=== PATIENT | female | born 1965 | race Caucasian/White ===

== ENCOUNTER 2021-11-30 08:59 | Day surgery (SDC) | payer OTHER ==
[~2021-11-30] VITALS: Ht 160 cm; Wt 76.3 kg
[~2021-11-30 08:59] MED LIST: SODIUM CHLORIDE 0.9% 1,000 ML IV ONE
[2021-11-30] MEDS ORDERED: SODIUM CHLORIDE 0.9% 1,000 ML ONE (09:46)
[2021-11-30] MEDS ORDERED: SODIUM CHLORIDE 0.9% 1,000 ML IV ONE (10:00)
[2021-11-30 10:21] LABS: GLUCOMETER DEV NAME(LOC) SDS.; GLUCOSE,POINT OF CARE 98 MG/DL (70-110)
[2021-11-30] MEDS ORDERED: CARV25 PO (10:33)
[2021-11-30] MEDS ORDERED: AMLO-257 PO (10:33)
[2021-11-30] MEDS ORDERED: ALBU8.5H8 IH (10:36)
[2021-11-30] MEDS ORDERED: ASPI-1450 PO (10:37)
[2021-11-30] MEDS ORDERED: ASPIRIN 81 MG CHEWABLE TABLET PO ONE (12:00)
[2021-11-30] MEDS ORDERED: DiphenhydrAMINE HCL 50 MG CAPSULE PO ONE (12:00)
[2021-11-30] MEDS ORDERED: DIAZEPAM 5 MG TABLET PO ONE (12:00)
[2021-11-30] MEDS ORDERED: DIAZEPAM 5 MG TABLET ONE (13:27)
[2021-11-30] MEDS ORDERED: DiphenhydrAMINE HCL 50 MG CAPSULE ONE (13:27)
[2021-11-30] MEDS ORDERED: DICL75TA5 PO (13:30)
[2021-11-30] MEDS ORDERED: CYCL5TAB PO (13:30)
[2021-11-30] MEDS ORDERED: DICL100G31 TP (13:30)
[2021-11-30] MEDS ORDERED: IOHEXOL 300 MG/ML 150 ML VIAL IVP ONE (14:00)
[2021-11-30] MEDS ORDERED: LIDOCAINE/PF 1% 30 ML VIAL ONE (14:58)
[2021-11-30] MEDS ORDERED: IOHEXOL 300 MG/ML 50 ML VIAL ONE (14:58)
[2021-11-30] MEDS ORDERED: SODIUM BICARBONATE 50 MEQ/50 ML VIAL ONE (14:58)
[2021-11-30] MEDS ORDERED: IOHEXOL 300 MG/ML 100 ML VIAL ONE (14:59)
[2021-11-30] MEDS ORDERED: HEPARIN SODIUM 1000 UNITS/NS 1,000 ML ONE (14:59)
[2021-11-30] MEDS ORDERED: IOHEXOL 300 MG/ML 150 ML VIAL ONE (14:59)
[2021-11-30] MEDS ORDERED: MIDAZOLAM HCL 2 MG/2 ML VIAL ONE (15:03)
[2021-11-30] MEDS ORDERED: FentaNYL CITRATE PF 100 MCG/2 ML VIAL ONE (15:03)
[2021-11-30] MEDS ORDERED: LIDOCAINE 1% 30 ML/SOD BICARB 8.4% 4 ML SQ ONE (15:15)
[2021-11-30] MEDS ORDERED: HEPARIN SODIUM 1000 UNITS/NS 1,000 ML IARTER ONE (15:15)
[2021-11-30] MEDS ORDERED: IOHEXOL 300 MG/ML 100 ML VIAL ICOR ONE (15:15)
[2021-11-30] MEDS ORDERED: MIDAZOLAM HCL 2 MG/2 ML VIAL IVP ONE ×2 (15:30)
[2021-11-30] MEDS ORDERED: FentaNYL CITRATE PF 100 MCG/2 ML VIAL IVP ONE ×2 (15:30)
== END 2021-11-30 19:15 | disposition home or self-care (01) ==
LOC: CATHLAB 08:59
PROVIDERS: ATTEND Internal Medicine Interventional Cardiology
DX: R94.39 Abnormal result of other cardiovascular function study (principal); R07.89 Other chest pain; E66.9 Obesity, unspecified; I10 Essential (primary) hypertension; Z79.82 Long term (current) use of aspirin; Z79.899 Other long term (current) drug therapy; Z98.890 Other specified postprocedural states; Z87.01 Personal history of pneumonia (recurrent); Z82.49 Family history of ischemic heart disease and other diseases of the circulatory system
CPT/HCPCS: 82962; 93454; 99152; 99153; C1760; J1644; J2250; J3010; J3490 ×2; J7030; Q9967